=== PATIENT | male | born 1975 ===

== ENCOUNTER 2018-09-30 13:16 | Emergency (ER) | payer OTHER ==
[2018-09-30 13:33] VITALS: RESP 18; TEMP 98.7
[2018-09-30] MEDS ORDERED: Sodium Chloride 0.9% 1,000 ML IV STA (13:46)
--- NOTE | 2018-09-30 13:51 | ED PDOC ---
Arrival/HPI - General Chief Complaint: Back Pain Time Seen by Provider: 09/30/18 13:30 Historian: Patient - History of Present Illness Narrative History of Present Illness (Text): 09/30/18 14:05 A 42 year old male, with no significant past medical history, presents to the emergency department complaining of lower back pain for 1 week. Describes pain as dull, and bilateral (right>left) that occasionally radiates to right flank. Patient reports pain worsens with bending/twisting, as well as going over bumps while in the car or riding the train. States also experiencing 1 episode of vomiting earlier this week. States he did not take any medications for symptoms. Patient mentions having kidney infections when he was a child. Patient denies any fever, chills, urinary symptoms, testicular pain, abdominal pain, diarrhea, constipation, chest pain, shortness of breath, cough, saddle anesthesia, bowel/bladder incontinence, numbness, weakness, paresthesias, or any other complaints at this time. Denies any heavy lifting, any trauma/injuries. PMD: Dr. Maribeth Mcclain Past Medical History - Provider Review Nursing Documentation Reviewed: Yes - Psychiatric Hx Substance Use: Yes - Anesthesia Hx Anesthesia: No Hx Anesthesia Reactions: No Hx Malignant Hyperthermia: No Family/Social History - Physician Review Nursing Documentation Reviewed: Yes Family/Social History: No Known Family HX Smoking Status: Never Smoked Hx Alcohol Use: Yes Frequency of alcohol use: Socially Hx Substance Use: Yes Substance used: marijuana daily Allergies/Home Meds Allergies/Adverse Reactions: Allergies acetaminophen [From Tylenol] Allergy (Verified 09/30/18 13:30) ANAPHYLAXIS Review of Systems - Physician Review All systems were reviewed & negative as marked: Yes - Review of Systems Constitutional: Normal. absent: Fevers, Night Sweats Eyes: Normal. absent: Vision Changes ENT: Normal. absent: Sinus Congestion Respiratory: Normal. absent: SOB, Cough Cardiovascular: Normal. absent: Chest Pain, Palpitations Gastrointestinal: Vomiting (1 episode earlier this week). absent: Abdominal Pain, Stool Changes, Constipation, Diarrhea, Appetite Changes Genitourinary Male: Normal. absent: Dysuria, Frequency, Hematuria, Urinary Output Changes Musculoskeletal: Back Pain (dull lower back pain, bilateral (right>left)) Skin: Normal. absent: Rash Neurological: Normal. absent: Headache, Dizziness Endocrine: Normal Hemo/Lymphatic: Normal Psychiatric: Normal Physical Exam Vital Signs Reviewed: Yes Vital Signs Temp Pulse Resp BP Pulse Ox 09/30/18 13:16 98.7 F 89 18 143/83 98 Temperature: Afebrile Blood Pressure: Normal Pulse: Regular Respiratory Rate: Normal Appearance: Positive for: Well-Appearing, Non-Toxic, Comfortable Pain Distress: None Mental Status: Positive for: Alert and Oriented X 3 - Systems Exam Head: Present: Atraumatic, Normocephalic Pupils: Present: PERRL Extroacular Muscles: Present: EOMI Conjunctiva: Present: Normal Mouth: Present: Moist Mucous Membranes Neck: Present: Normal Range of Motion. No: Meningeal Signs, MIDLINE TENDERNESS, Paraspinal Tenderness Respiratory/Chest: Present: Clear to Auscultation, Good Air Exchange. No: Respiratory Distress, Accessory Muscle Use Cardiovascular: Present: Regular Rate and Rhythm, Normal S1, S2. No: Murmurs Abdomen: Present: Tenderness (mild, right flank), Normal Bowel Sounds. No: Dist ention, Peritoneal Signs Back: Present: Normal Inspection, Paraspinal Tenderness (mild bilateral lumbar paraspinal tenderness), Other (Normal ROM). No: CVA Tenderness, Midline Tenderness Upper Extremity: Present: Normal Inspection, Normal ROM, NORMAL PULSES, Neurovascularly Intact, Capillary Refill < 2s. No: Cyanosis, Edema, Temperature Abnormalties Lower Extremity: Present: Normal Inspection, NORMAL PULSES, Normal ROM, Neurovascularly Intact, Capillary Refill < 2 s. No: Edema Neurological: Present: GCS=15, CN II-XII Intact, Speech Normal, Motor Func Grossly Intact, Normal Sensory Function, Gait Normal Skin: Present: Warm, Dry, Normal Color. No: Rashes Lymphatic: No: Cervical Adenopathy Psychiatric: Present: Alert, Oriented x 3, Normal Insight, Normal Concentration, Normal Affect, Normal Mood Medical Decision Making ED Course and Treatment: 09/30/18 13:51 Initial Plan: * CBC, CMP * Lipase * Urinalysis, culture * CXR * IVF * Toradol On initial evaluation, patient very well appearing, in no acute distress. Resting comfortably in stretcher texting on cellphone. 09/30/18 14:52 Reports resolution of back pain with medications. Bloodwork and urine unremarkable. CT negative for acute pathology Back pain most likely MSK, will discharge home with naproxen and flexeril; advised to followup with PMD within 2 days. Patient states he will followup. Diagnostic testing results and plan of care discussed with patient. Strict instructions given regarding prescription use, importance of followup, and signs/symptoms to return to ER including worsening back or abdominal pain, fever, chills, N/V, or any other new/worsening symptoms. Pt verbalized u nderstanding of discussion. Patient is A&Ox3, ambluating with steady gait, with vital signs stable for discharge. - Lab Interpretations Lab Results: 09/30/18 14:20 09/30/18 14:20 Lab Results 09/30/18 14:20: PT 11.2, INR 0.98, APTT 30.5 09/30/18 14:20: Sodium 141, Potassium 4.2, Chloride 104, Carbon Dioxide 28, Anion Gap 14, BUN 15, Creatinine 0.9, Est GFR ( Amer) > 60, Est GFR (Non- Af Amer) > 60, Random Glucose 98, Calcium 10.1, Total Bilirubin 0.6, AST 31, ALT 34, Alkaline Phosphatase 75, Total Protein 8.7 H, Albumin 5.1 H, Globulin 3.7, Albumin/Globulin Ratio 1.4, Lipase 28 09/30/18 14:20: Urine Color Yellow, Urine Appearance Clear, Urine pH 7.0, Ur Specific [place] 1.020, Urine Protein Negative, Urine Glucose (UA) Negative, Urine Ketones Negative, Urine Blood Negative, Urine Nitrate Negative, Urine Bilirubin Negative, Urine Urobilinogen 0.2, Ur Leukocyte Esterase Negative 09/30/18 14:20: WBC 8.6, RBC 5.43, Hgb 16.2, Hct 48.2, MCV 88.8, MCH 29.8, MCHC 33.6, RDW 12.9, Plt Count 343, MPV 8.8, Gran % 53.6, Lymph % (Auto) 35.9 H, Ward % (Auto) 6.4 H, Eos % (Auto) 3.6, Baso % (Auto) 0.5, Gran # 4.60, Lymph # (Auto) 3.1, Ward # (Auto) 0.6, Eos # (Auto) 0.3, Baso # (Auto) 0.04 I have reviewed the lab results: Yes - RAD Interpretation Narrative RAD Interpretations (Text): CXR: No active disease CT Abd/Pelvis with IV contrast: Hepatic Steatosis Diverticulosis Constipation No acute intra-abdominal or intra-pelvic pathology identified. Tube Cutter: Radiologist - Nenaibeloy Statement The provider has reviewed the documentation as recorded by the Ting Thompson Provider Scribe Attestation: All medical record entries made by the Scribe were at my direction and personally dictated by me. I have reviewed the chart and agree that the record accurately reflects my personal performance of the history, physical exam, medical decision making, and the department course for this patient. I have also personally directed, reviewed, and agree with the discharge instructions and disposition. Disposition/Present on Arrival - Present on Arrival Any Indicators Present on Arrival: No History of DVT/PE: No History of Uncontrolled Diabetes: No Urinary Catheter: No History of Decub. Ulcer: No History Surgical Site Infection Following: None - Disposition Have Diagnosis and Disposition been Completed?: Yes Diagnosis: Back pain Disposition: HOME/ ROUTINE Disposition Time: 17:30 Patient Plan: Discharge Condition: IMPROVED Discharge Instructions (ExitCare): Low Back Pain in Adults, Strengthening Your Lower Body and Core Additional Instructions: Flexeril every 8 hours as needed, do not take before driving or operating heavy machinery Naproxen daily as needed for pain Lidoderm patches daily as needed, 12 hours on 12 hours off Followup with primary doctor within 2 days Followup with orthopedics within 2 days Return to Er with any new/worsening symptoms Prescriptions: Cyclobenzaprine [Flexeril] 5 mg PO Q8H PRN #12 tab PRN Reason: pain Lidocaine 5% [Lidoderm] 1 ea TD DAILY PRN #30 patch PRN Reason: Pain, Mild (1-3) Naproxen [Naprosyn] 500 mg PO DAILY PRN #14 tablet PRN Reason: Pain, Moderate (4-7) Referrals: Maribeth Mcclain NP [Primary Care Provider] - Follow up with primary Libertad Vergara MD [Staff Provider] - Follow up with primary Forms: [employer] (Swazi), WORK NOTE
[2018-09-30 14:38] LABS: BASO # 0.04 K/mm3 (0.0-2.0); BASO % 0.5 % (0.0-3.0); EOS # 0.3 (0.0-0.7); EOS % 3.6 % (1.5-5.0); GRAN # 4.6 (1.4-6.5); GRAN % 53.6 % (50.0-68.0); HEMOGLOBIN 16.2 g/dL (14.0-18.0); LYMPH # 3.1 (1.2-3.4); LYMPH % 35.9 % (22.0-35.0); MEAN CELL VOLUME 88.8 fl (80.0-105.0); MEAN CORPUSCULAR HEMOGLOBIN 29.8 pg (25.0-35.0); MEAN CORPUSCULAR HGB CONC 33.6 g/dl (31.0-37.0); MEAN PLATELET VOLUME 8.8 fl (7.0-11.0); MONO # 0.6 (0.1-0.6); MONO % 6.4 % (1.0-6.0); RBC 5.43 10^6/uL (3.5-6.1); RED CELL DISTRIBUTION WIDTH 12.9 % (11.5-14.5); WHITE BLOOD COUNT 8.6 10^3/uL (4.5-11.0)
[2018-09-30 14:41] LABS: URINE BILIRUBIN NEGATIVE (NEGATIVE); URINE BLOOD NEGATIVE (NEGATIVE); URINE GLUCOSE (UA) NEGATIVE (NEGATIVE); URINE LEUKOCYTE ESTERASE NEGATIVE Leu/uL (NEGATIVE); URINE PROTEIN NEGATIVE mg/dL (<30 mg/dL); URINE UROBILINOGEN 0.2 E.U./dL (<1 E.U./dL)
[2018-09-30 14:46] LABS: ALB/GLOB RATIO 1.4 (1.1-1.8); ALBUMIN 5.1 g/dL (3.0-4.8); ALT/SGPT 34 U/L (7-56); AST/SGOT 31 U/L (17-59); BLOOD UREA NITROGEN 15 mg/dL (7-21); CALCIUM 10.1 mg/dL (8.4-10.5); GFR NON-AFRICAN AMERICAN > 60; LIPASE 28 U/L (23-300); URINE APPEARANCE CLEAR (CLEAR); URINE COLOR YELLOW (YELLOW)
[2018-09-30] MEDS ORDERED: Iohexol 350 MG/100 ML VIAL ONE (15:08)
[2018-09-30 15:19] LABS: INR 0.98; PARTIAL THROMBOPLASTIN TIME 30.5 Seconds (25.1-36.5); PROTHROMBIN TIME 11.2 SECONDS (9.4-12.5)
--- NOTE | 2018-09-30 16:03 | RAD ---
Date of service: 09/30/2018 HISTORY: Cough. COMPARISON: No prior. FINDINGS: LUNGS: No active pulmonary disease. PLEURA: No significant pleural effusion identified, no pneumothorax apparent. CARDIOVASCULAR: No atherosclerotic calcification present Normal. OSSEOUS STRUCTURES: No significant abnormalities. VISUALIZED UPPER ABDOMEN: Normal. OTHER FINDINGS: None. IMPRESSION: No active disease.
--- NOTE | 2018-09-30 16:03 | CT ---
Date of service: 09/30/2018 PROCEDURE: CT Abdomen and Pelvis with contrast HISTORY: persistent back/flank pain, intermittent abd pain COMPARISON: None. TECHNIQUE: Intravenous contrast dose: 100 cc Omnipaque 350 Radiation dose: Total exam DLP = 412.10 mGy-cm. This CT exam was performed using one or more of the following dose reduction techniques: Automated exposure control, adjustment of the mA and/or kV according to patient size, and/or use of iterative reconstruction technique. FINDINGS: LOWER THORAX: Unremarkable. LIVER: Hepatic steatosis. No focal masses. No intrahepatic bile duct dilatation or perihepatic ascites. GALLBLADDER AND BILE DUCTS: Unremarkable. PANCREAS: Unremarkable. No gross lesion or ductal dilatation. SPLEEN: Unremarkable. ADRENALS: Unremarkable. No mass. KIDNEYS AND URETERS: Unremarkable. No hydronephrosis. No solid mass. VASCULATURE: Unremarkable. No aortic aneurysm. No atherosclerotic calcification or mural plaque present. BOWEL: Diverticulosis without an acute inflammatory component or other associated pathologic process. Constipation without fecal impaction or obstruction. APPENDIX: No abnormalities to suggest acute appendicitis. No right lower quadrant inflammatory processes identified. PERITONEUM: Unremarkable. No free fluid. No free air. LYMPH NODES: Unremarkable. No enlarged lymph nodes. BLADDER: Unremarkable. REPRODUCTIVE: Unremarkable. BONES: No acute fracture. OTHER FINDINGS: None. IMPRESSION: No significant or acute findings to account for/ related to the clinical presentation. Additional benign and/or incidental findings described above.
[2018-09-30] MEDS: Lidocaine 5% Patch TD STA ×2 (17:30)
[2018-09-30 17:44] VITALS: BP 128/79; PULSE 65; O2SAT 100
== END 2018-09-30 17:29 | disposition home or self-care (01) ==
LOC: ED 13:16
DX: M54.9 Dorsalgia, unspecified (principal)
CPT/HCPCS: 71045; 74177; 80053; 81003; 83690; 85025; 85610; 85730; 87086; 96361; 96374; 99284; J1885; J7030; Q9967